=== PATIENT | female | born 1985 | race American Indian/Alaskan Native ===

== ENCOUNTER 2020-07-10 20:41 | Emergency (ER) | payer SELFPAY ==
[2020-07-10 21:25] VITALS: BP 142/74
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
[2020-07-10 23:35] LABS: Bilirubin,Urine NEG (Negative); Blood,Urine NEG (Negative); Color,Urine Yellow (Yellow); Mucus,Urine FEW /HPF; Protein,Urine <15 mg/dL mg/dL (Negative); Urobilinogen,Urine < 2.0 mg/dL (<2.0)
[2020-07-10 23:53] LABS: HCG Qualitative,Urine Negative (Negative)
--- NOTE | 2020-07-11 00:34 | XRay Report ---
Left hip 2 views INDICATION: Left hip pain. IMPRESSION: Mild degenerative changes of the left hip without fracture or subluxation. Signer Name: Roney Malik MD Signed: 07/11/2020 12:29 AM Workstation Name: [id number]
--- NOTE | 2020-07-11 00:34 | XRay Report ---
Lumbar spine 2 views INDICATION: Low back pain. IMPRESSION: Mild facet arthropathy L5-S1. No fracture or subluxation. No severe neural foraminal sten osis. Signer Name: Roney Malik MD Signed: 07/11/2020 12:29 AM Workstation Name: [id number]
[2020-07-11] MEDS ORDERED: methylPREDNISolone Sod Succinate 125 MG/2 ML INJ IM ONE (00:38)
[2020-07-11] MEDS ORDERED: KETOROLAC 30 MG/1 ML INJ IM ONE (00:38)
== END 2020-07-11 01:00 | disposition home or self-care (01) ==
LOC: ED 20:41
DX: S39.012A Strain of muscle, fascia and tendon of lower back, initial encounter (principal); Z79.899 Other long term (current) drug therapy; X58.XXXA Exposure to other specified factors, initial encounter; Y93.89 Activity, other specified; Y92.89 Other specified places as the place of occurrence of the external cause; Y99.8 Other external cause status
CPT/HCPCS: 72100; 73502; 81001; 81025; 96372; 99283; J1885; J2930